=== PATIENT | female | born 1950 | race Caucasian/White ===

== ENCOUNTER → 2021-08-06 08:35 | Outpatient (BNVA) | payer MEDICARE, SELFPAY | PROVIDERS: Family Provider Family Medicine; Visit Provider Family Medicine | DX: R03.0 Elevated blood-pressure reading, without diagnosis of hypertension (principal); Z00.00 Encounter for general adult medical examination without abnormal findings; E78.5 Hyperlipidemia, unspecified | CPT/HCPCS: 80053; 80061 ==

== ENCOUNTER → 2022-08-01 09:30 | Outpatient (BNVA) | payer MEDICARE, SELFPAY | PROVIDERS: Family Provider Family Medicine; PCP Family Medicine; Visit Provider Family Medicine | DX: F41.9 Anxiety disorder, unspecified (principal); F32.9 Major depressive disorder, single episode, unspecified; E78.5 Hyperlipidemia, unspecified; G47.30 Sleep apnea, unspecified; R73.9 Hyperglycemia, unspecified | CPT/HCPCS: 80053; 80061; 83036; 84443 ==

== ENCOUNTER → 2022-10-24 08:22 | Outpatient (BNVA) | payer MEDICARE, SELFPAY | PROVIDERS: Family Provider Family Medicine; PCP Family Medicine; Visit Provider Nurse Practitioner Family | DX: L57.8 Other skin changes due to chronic exposure to nonionizing radiation (principal); L81.4 Other melanin hyperpigmentation; D22.5 Melanocytic nevi of trunk; L85.3 Xerosis cutis; L71.8 Other rosacea; L57.0 Actinic keratosis | CPT/HCPCS: 17000; 17003; 99214 ==

== ENCOUNTER → 2023-06-09 10:25 | Outpatient (BNVA) | payer MEDICARE, SELFPAY | PROVIDERS: Family Provider Family Medicine; PCP Family Medicine; Referring Provider Family Medicine; Visit Provider Surgery | DX: K59.09 Other constipation; R19.5 Other fecal abnormalities; K21.9 Gastro-esophageal reflux disease without esophagitis | CPT/HCPCS: 99204 ==

== ENCOUNTER 2023-06-11 13:04 | Outpatient (CLI) | payer MEDICARE, SELFPAY ==
--- NOTE | 2023-06-11 13:30 | XR_ITS ---
WS: [id number] SCREENING DEXA SCAN [employer] CLINICAL INFORMATION: osteoporosis screening COMPARISON: None. FINDINGS: The L1-L4 bone mineral density measures 1.231 g/cm2. This corresponds to a T score score of 0.4 and Z score of 2.1. Left femoral neck bone mineral density measures 0.841 g/cm2. This corresponds to a T score of -1.3 an d Z score of 0.2. Right femoral neck bone mineral density measures 0.855 g/cm2. This corresponds to a T score -1.2of an d Z score of 0.3. Mean femoral neck bone mineral density measures 0.848 g/cm2. This corresponds to a T score of -1.3 an d Z score of 0.3. IMPRESSION: Normal bone mineralization lumbar spine. Osteopenia femoral necks. Patient's FRAX calculated 10 year probability for major osteoporotic fracture is 21.9% and osteoporot ic hip fracture is 8.4%.
--- NOTE | 2023-06-11 14:00 | MM_ITS ---
WS: [id number] Bilateral screening 3D tomosynthesis digital mammogram, 06/11/2023 Clinical Data: breast cancer screening Comparison: None. Findings: The breast parenchymal pattern shows fibroglandular tissue. No spiculated masses or clustered calcifi cations are seen. There are no secondary signs of carcinoma. Impression: 1. Negative bilateral mammogram unchanged. 2. Recommend annual screening mammograms. MM/[place] [id number] BIRADS: 1-Negative FOLLOW UP: 1 Year Follow-up The CAD raspberry checker was used.
== END 2023-06-11 13:05 | disposition home or self-care (01) ==
LOC: RAD 13:04
PROVIDERS: Family Provider Family Medicine; PCP Family Medicine; Visit Provider Family Medicine
DX: Z12.31 Encounter for screening mammogram for malignant neoplasm of breast (principal); Z13.820 Encounter for screening for osteoporosis; M85.852 Other specified disorders of bone density and structure, left thigh; M85.851 Other specified disorders of bone density and structure, right thigh; Z78.0 Asymptomatic menopausal state
CPT/HCPCS: 77063; 77067; 77080

== ENCOUNTER 2023-07-23 09:51 | Day surgery (SDC) | payer MEDICARE, SELFPAY ==
[2023-07-23 10:15] VITALS: BP 149/79; PULSE 80; RESP 18; TEMP 36.2; O2SAT 98; BMI 28.5
--- NOTE | 2023-07-23 10:55 | ANES.PREANE2 ---
Pre-Anesthetic Assessment Height/Weight: Height 1.52 m Weight 66.224 kg Temp Pulse Resp BP Pulse Ox O2 Del Method 97.2 F L 80 18 149/79 98 Room Air 07/23/23 10:15 07/23/23 10:15 07/23/23 10:15 07/23/23 10:15 07/23/23 10:15 07/23/23 10:15 Preop Diagnosis: GERD, screening Operation Date: 07/23/23 11:00 Proposed Procedures p 28662 EGD, [address]55 Colon G0121 Z12.11,K21.9(Not Applicable) - Venu Doyle DO s Colonoscopy(Not Applicable) - Venu Doyle DO Familial anesthetic complications: none Was Beta Siobhan taken within 24 hours: N/A Was Clonidine taken within 24 hours: N/A Last intake: Intake Last Liquid Date 07/22/23 Last Liquid Time 21:00 Last Solid Date 07/21/23 Last Solid Time 18:00 Last Intake: 21:00 Social No alcohol and No tobacco Exam alert, oriented x 3, clear to auscultation bilaterally and regular rate & rhythm Airway Submandibular: within normal limits Cervical ROM: within normal limits Mallampati: Class II Dentition: false Pulmonary Sleep Apnea CV/HEM None reported None reported Hepatic None reported GI Gastroesophageal Reflux Disease Metabolic None reported Musc/skel None reported Neuropsych Anxiety and Depression Anesthetic Plan ASA status: 2 Anesthesia: MAC Risk of > 500 ml blood loss (7ml/kg in children): No Medications/Allergies Home Medications Medication Instructions Recorded Confirmed Last Taken Type metronidazole 1 % topical gel 1 applic topical DAILY #60 grams 04/18/22 07/21/23 07/17/23 Rx (Metrogel) tretinoin 0.05 % topical cream 1 applic topical .qhs #45 grams 04/18/22 07/21/23 1 Week Ago Rx ~07/14/23 duloxetine 60 mg capsule,delayed 60 mg PO DAILY #90 caps 02/04/23 07/21/23 07/22/23 Rx release alprazolam 0.5 mg tablet 0.5 mg PO TID PRN anxiety/stress 05/23/23 07/21/23 07/22/23 Rx #90 tabs alendronate 70 mg tablet (Fosamax) 70 mg PO .once a week #12 tabs 06/16/23 07/21/2307/19/24 Rx calcium 600 mg capsule 1,100 mg PO DAILY 07/21/23 07/21/23 07/22/23 History pantoprazole 40 mg tablet,delayed 40 mg PO DAILY 07/21/23 07/21/23 07/22/23 History release simvastatin 40 mg tablet 40 mg PO DAILY 07/21/23 07/21/23 07/22/23 History Allergies Allergy/AdvReac Type Severity Reaction Status Date / Time Sulfa (Sulfonamide Allergy hives, Verified 06/09/23 10:29 Antibiotics) rash, tongue swells up [facility] Anesthesia Medical History Macular degeneration Anxiety Hyperlipemia Depression Surgical History History of total hysterectomy with bilateral salpingo-oophorectomy (BSO) Family History Father Colon cancer Mother No problems noted. Social History Smoking and tobacco/nicotine status: never used tobacco/nicotine Alcohol intake: never Substance/Drug Use: never Household members: children Marital status: Marital status details: 30 years as of 2022 Number of children: 2 Number of grandchildren: 1 Current occupational status: retired Special batsheva needs: No Agree to transfusion: Yes Data Anesthesia Cardiac Studies: No Data to Display
[2023-07-23] MEDS: sodium chloride 0.9% 1,000 ML 30 ML IV (11:30)
--- NOTE | 2023-07-23 11:39 | PM.HP ---
Providers/Chief Complaint Primary Care Provider: Nazanin Call MD Chief Complaint: Z12.11 History of Present Illness Jeannette Mei is a 72 year old female Review of Systems General: Reports: 10 or more systems reviewed and unremarkable except in HPI and below Medications/Allergies Home Medications Medication Instructions Recorded Confirmed Last Taken Type metronidazole 1 % topical gel 1 applic topical DAILY #60 grams 04/18/22 07/21/23 07/17/23 Rx (Metrogel) tretinoin 0.05 % topical cream 1 applic topical .qhs #45 grams 04/18/22 07/21/23 1 Week Ago Rx ~07/14/23 duloxetine 60 mg capsule,delayed 60 mg PO DAILY #90 caps 02/04/23 07/21/23 07/22/23 Rx release alprazolam 0.5 mg tablet 0.5 mg PO TID PRN anxiety/stress 05/23/23 07/21/23 07/22/23 Rx #90 tabs alendronate 70 mg tablet (Fosamax) 70 mg PO .once a week #12 tabs 06/16/23 07/21/23 07/20/23 Rx calcium 600 mg capsule 1,100 mg PO DAILY 07/21/23 07/21/23 07/22/23 History pantoprazole 40 mg tablet,delayed 40 mg PO DAILY 07/21/23 07/21/23 07/22/23 History release simvastatin 40 mg tablet 40 mg PO DAILY 07/21/23 07/21/23 07/22/23 History Allergies Allergy/AdvReac Type Severity Reaction Status Date / Time Sulfa (Sulfonamide Allergy hives, Verified 06/09/23 10:29 Antibiotics) rash, tongue swells up PFSH Acute PFSH: Medical History Macular degeneration Anxiety Hyperlipemia Depression Surgical History History of total hysterectomy with bilateral salpingo-oophorectomy (BSO) Family History Father Colon cancer Mother No problems noted. Social History Smoking and tobacco/nicotine status: never used tobacco/nicotine Alcohol intake: never Substance/Drug Use: never Household members: children Marital status: Marital status details: 30 years as of 2022 Number of children: 2 Number of grandchildren: 1 Current occupational status: retired Special batsheva needs: No Agree to transfusion: Yes Vitals/I&O/Wt Last Vital Signs Temp 97.2 F L 07/23/23 10:15 Pulse 80 07/23/23 10:15 Resp 18 07/23/23 10:15 BP 149/79 07/23/23 10:15 Pulse Ox 98 07/23/23 10:15 O2 Del Method Room Air 07/23/23 10:15 Weight last 48 hrs Weight 146 lb A&P Assessment and plan (1) GERD (gastroesophageal reflux disease): (2) Colon cancer screening: Plan EGD and colonoscopy Attestations Medical Necessity Statement*: Home Coding Level of Care Code Acute Code for Chg Fwd Diagnoses GERD (gastroesophageal reflux disease) K21.9 Colon cancer screening Z12.11
[2023-07-23] MEDS: EPINEPHrine 1 mg/mL INJ XX (11:50)
[2023-07-23 12:10] VITALS: BP 147/88; PULSE 81; RESP 16; TEMP 34.4; O2SAT 94
[2023-07-23 12:25] VITALS: BP 135/83; PULSE 72; RESP 16; O2SAT 95
[2023-07-23 12:35] VITALS: BP 150/74; PULSE 62; RESP 18; O2SAT 100
--- NOTE | 2023-07-23 14:09 | ANE.PACU2 ---
Inpatient post-anesthesia follow up: Vital signs: Temperature 94 F Pulse Rate 62 Respiratory Rate 18 Blood Pressure 150/74 Pulse Oximetry 100 Oxygen Delivery Me thod Room Air Oxygen Flow Rate 4 Fraction of Inspir ed Oxygen Hydration adequate: Yes Nausea and vomiting: No Mental status: Baseline Additional Comments: no known anesthetic complications noted
== END 2023-07-23 12:55 | disposition home or self-care (01) ==
PROVIDERS: PCP Family Medicine; Visit Provider Surgery
PROC: 0DJ08ZZ Inspection of Upper Intestinal Tract, Via Natural or Artificial Opening Endoscopic (ICD-10-PCS; CPT 43235; principal; 2023-07-23 11:00)
PROC: 0DJD8ZZ Inspection of Lower Intestinal Tract, Via Natural or Artificial Opening Endoscopic (ICD-10-PCS; CPT 45378; 2023-07-23 11:00)
DX: Z12.11 Encounter for screening for malignant neoplasm of colon (principal); K44.9 Diaphragmatic hernia without obstruction or gangrene; K29.50 Unspecified chronic gastritis without bleeding; K21.00 Gastro-esophageal reflux disease with esophagitis, without bleeding; E78.5 Hyperlipidemia, unspecified; F41.9 Anxiety disorder, unspecified; F32.A Depression, unspecified; G47.30 Sleep apnea, unspecified
CPT/HCPCS: 43239; 45380; 88305; 88342; J0171; J2704; J7030

== ENCOUNTER → 2023-08-14 10:00 | Outpatient (BNVA) | payer MEDICARE, SELFPAY | PROVIDERS: PCP Family Medicine; Visit Provider Surgery | DX: Z09 Encounter for follow-up examination after completed treatment for conditions other than malignant neoplasm (principal); K59.04 Chronic idiopathic constipation; K21.00 Gastro-esophageal reflux disease with esophagitis, without bleeding | CPT/HCPCS: 99214 ==

== ENCOUNTER → 2023-09-05 08:52 | Outpatient (BNVA) | payer MEDICARE, SELFPAY | PROVIDERS: PCP Family Medicine; Visit Provider Surgery | DX: Z09 Encounter for follow-up examination after completed treatment for conditions other than malignant neoplasm (principal); K59.04 Chronic idiopathic constipation; K21.00 Gastro-esophageal reflux disease with esophagitis, without bleeding | CPT/HCPCS: 80053; 80061; 83036; 99214 ==

== ENCOUNTER → 2023-12-05 08:48 | Outpatient (BNVA) | payer MEDICARE, SELFPAY | PROVIDERS: PCP Family Medicine; Visit Provider Family Medicine | DX: E11.9 Type 2 diabetes mellitus without complications (principal) | CPT/HCPCS: 80053; 80061; 82607; 83036 ==

== ENCOUNTER 2023-12-26 09:37 | Outpatient (CLI) | payer MEDICARE, SELFPAY ==
--- NOTE | 2023-12-26 10:00 | CT_ITS ---
WS: [id number] CT ABDOMEN AND PELVIS WITH CONTRAST HISTORY: unintentional weight loss, abd pain TECHNIQUE: Imaging performed of the abdomen and pelvis with IV contrast. Single phase imaging of the abdomen. Coronal and sagittal reformats are submitted. All CT scans at [facility] use at [address] one of these dose optimization techniques: automated exposure control; mA and/or kV adjustment per patient size (includes targeted exams where dose is matched to clinical indication); or iterative re construction. IV CONTRAST: Omnipaque 350; 100 mL IV. Oral contrast: Yes. DLP: 264.45 mGy.cm COMPARISON: 01/21/2017 Lower thorax: Lung bases are clear. Heart is normal size. No hiatal hernia. Liver/biliary system: Normal size with no intrahepatic dilatation. Gallbladder: Normally distended gallbladder with numerous small stones in the dependent gallbladder. No adjacent inflammation. Pancreas: Normal size pancreas and pancreatic duct. No adjacent inflammation. Spleen: Normal size spleen. No mass or infarct. Adrenal glands: Normal. Right kidney: Normal. Left kidney: Normal. Aorta: Normal. Lymphadenopathy: None. Free fluid: None. GI tract: Stomach is markedly distended with oral contrast. No small bowel obstruction or enteritis. Marked overlapping loops of colon with diffuse moderate constipation. No obstructing process. Inspiss ated fecal material toward the rectum. There is a short segment narrowing in the distal sigmoid with mild wall thickening but this may be peristalsis. This can be further evaluated by colonoscopy if madi t has not been performed recently. Abdominal wall: Unremarkable abdominal wall. No hernia. Pelvis: No free fluid or adenopathy within the pelvis. Bones: Unremarkable. CT/CT abdomen pelvis w con* [id number] IMPRESSION: 1. Cholelithiasis without acute cholecystitis. Numerous tiny stones are presen t in the gallbladder. No hepatobiliary duct dilatation. 2. Possible short segment stricture or luminal narrowing involving the distal sigmoid colon. Consider further evaluation by colonoscopy. This may be an early neoplastic or inflammatory stricture or secondary to peristalsis. 3. Moderate diffuse constipation.
[2023-12-26] MEDS: iohexol 350 mg/mL 500 mL Btl (per mL) PO (11:21)
[2023-12-26] MEDS: iohexol 350 mg/mL 500 mL Btl (per mL) IV (11:21)
== END 2023-12-26 09:38 | disposition home or self-care (01) ==
LOC: RAD 09:40
PROVIDERS: PCP Family Medicine; Visit Provider Family Medicine
DX: K56.690 Other partial intestinal obstruction (principal); K80.20 Calculus of gallbladder without cholecystitis without obstruction; K59.00 Constipation, unspecified; R63.4 Abnormal weight loss; R10.9 Unspecified abdominal pain; K59.09 Other constipation
CPT/HCPCS: 74177

== ENCOUNTER → 2024-01-08 08:18 | Outpatient (BNVA) | payer MEDICARE, SELFPAY | PROVIDERS: PCP Family Medicine; Visit Provider Surgery | DX: K80.20 Calculus of gallbladder without cholecystitis without obstruction (principal); K59.04 Chronic idiopathic constipation | CPT/HCPCS: 99214 ==

== ENCOUNTER 2024-01-20 10:30 | Day surgery (SDC) | payer MEDICARE, SELFPAY ==
[2024-01-20] VITALS (21 sets, daily range): BP systolic 113–178; BP diastolic 51–93; PULSE 57–66; RESP 12–16; TEMP 36.1–36.6; O2SAT 87–100; BMI 23.8
--- NOTE | 2024-01-20 11:04 | W.PM.OPSUD ---
Surgery/Procedure H&P Update DATE OF PROCEDURE: January 20, 2024 DATE H&P PERFORMED: 01/08/24 H&P UPDATE INFORMATION: I have reviewed H&P completed within last 30 days, I have examined patient prior to procedure and No changes to prior documentation PLANNED PROCEDURE: Operation Date: 01/20/24 12:45 Proposed Procedures p Laparoscopic Cholecystectomy 03203, K80.20(Not Applicable) - Venu Doyle,
[2024-01-20 11:14] LABS: Glucose Point of Care 86 mg/dL (70-110)
[2024-01-20] MEDS: sodium chloride 0.9% 1,000 ML 30 ML IV (11:17)
--- NOTE | 2024-01-20 11:18 | ANES.PREANE2 ---
Pre-Anesthetic Assessment Height/Weight: Height 5 ft Weight 122 lb Temp Pulse Resp BP Pulse Ox O2 Del Method 97.6 F 61 16 152/87 98 Room Air 01/20/24 10:59 01/20/24 10:59 01/20/24 10:59 01/20/24 10:59 01/20/24 10:59 01/20/24 10:59 Preop Diagnosis: Cholecystitis Operation Date: 01/20/24 12:45 Proposed Procedures p Laparoscopic Cholecystectomy 29791, K80.20(Not Applicable) - Venu Doyle, DO Was Beta Siobhan taken within 24 hours: N/A Was Clonidine taken within 24 hours: N/A Last intake: Intake Last Liquid Date 01/19/24 Last Liquid Time 21:30 Last Solid Date 01/19/24 Last Solid Time 21:30 Social No alcohol and No tobacco Exam alert, oriented x 3, clear to auscultation bilaterally and regular rate & rhythm Airway Submandibular: within normal limits Cervical ROM: within normal limits Mallampati: Class II Dentition: other (Edentulous) Anesthetic Plan ASA status: 2 Anesthesia: General Other: No prior issues with anesthesia NPO since yesterday evening History of GERD, on Protonix Type 2 diabetes on metformin, AM BS 86 METs greater than 4 Plan for GETA Medications/Allergies Home Medications Medication Instructions Recorded Confirmed Last Taken Type alendronate 70 mg tablet (Fosamax) 70 mg PO .once a week #12 tabs 06/16/23 01/19/24 01/18/24 Rx calcium 600 mg capsule 1,100 mg PO DAILY 07/21/23 01/19/24 01/18/24 History simvastatin 40 mg tablet 40 mg PO DAILY #90 tabs 09/17/23 01/19/24 01/18/24 Rx polyethylene glycol 3350 17 17 g PO DAILY #238 grams 10/15/23 01/19/24 Unknown Rx gram/dose oral powder (Miralax) pantoprazole 40 mg tablet,delayed 40 mg PO DAILY #90 tabs 12/15/23 01/19/24 01/20/24 07:00 Rx release alprazolam 0.5 mg tablet See Rx Instructions PO DAILY PRN 12/23/23 01/19/24 01/20/24 07:00 Rx anxiety/stress #21 tabs linaclotide 72 mcg capsule 72 mcg PO DAILY 30 days #30 caps 01/08/24 01/19/24 01/19/24 Rx (Linzess) metformin 500 mg tablet,extended 1,000 mg PO BID 01/19/24 01/19/24 01/18/24 History release 24 hr duloxetine 60 mg capsule,delayed 60 mg PO DAILY 01/20/24 01/19/24 01/20/24 07:00 History release (Cymbalta) Allergies Allergy/AdvReac Type Severity Reaction Status Date / Time Sulfa (Sulfonamide Allergy hives, Verified 01/08/24 08:19 Antibiotics) rash, tongue swells up Current Medications Generic Name Dose Route Start Last Admin Trade Name Freq PRN Reason Stop Dose Admin Sodium Chloride 1,000 mls @ 30 mls/hr 01/20/24 10:45 01/20/24 11:17 Sodium Chloride 0.9% IV 01/21/24 10:44 30 mls/hr .Q24H JHONNY Administration PFSH Anesthesia Medical History Macular degeneration Anxiety Hyperlipemia Depression Surgical History History of total hysterectomy with bilateral salpingo-oophorectomy (BSO) Family History Father Colon cancer Mother No problems noted. Social History Smoking and tobacco/nicotine status: never used tobacco/nicotine Alcohol intake: never Substance/Drug Use: never Household members: children Marital status: Marital status details: 30 years as of 2022 Number of children: 2 Number of grandchildren: 1 Current occupational status: retired Special batsheva needs: No Agree to transfusion: Yes Data Anesthesia Cardiac Studies: No Data to Display
[2024-01-20] MEDS: ceFAZolin 2,000 mg SDV 2000 MG IVP (11:22)
[2024-01-20] MEDS: lidocaine-epi 2% PF 1:200,000 20 mL SDV INJECTION (11:43)
--- NOTE | 2024-01-20 12:15 | PM.OP ---
Operative Report Date of procedure: January 20, 2024 Surgeon: Venu Doyle DO Brief History: This is a very pleasant 73-year-old female who presented to my office with abdominal pain. She was diagnosed with symptomatic cholelithiasis. Laparoscopic cholecystectomy was indicated. The risks and benefits were explained and documented. Procedure: Preoperative diagnosis: Symptomatic cholelithiasis Postoperative diagnosis: Same Procedure performed: Laparoscopic cholecystectomy, Laparoscopic lysis of adhesions Surgeon: Dr. Venu Doyle DO Estimated blood loss: 5 mL Specimens: Gallbladder to pathology Complications: None apparent Description of procedure: Patient was wheeled into the operative room and placed on the OR table in a supine position. Abdomen was inspected prepped and draped in usual sterile fashion. Time-out was performed and all present were in agreement. A 15 blade scalp was used to make a 5 mm incision in the left upper quadrant and intra-abdominal insufflation was achieved using a Veress needle. A 5 mm trocar was then placed through this incision. Omentum and small bowel were found scarred to the anterior abdominal wall around the umbilicus. Omental adhesions were taken down bluntly and with electrocautery, taking care not to injure the small bowel. After localizing the tissue, incisions were made and a 5 millimeter trocar was placed supraumbilically as well as 2 in the right upper quadrant. A 12 millimeter trocar was placed in the epigastrium. There was significant omental adhesions to the gallbladder which were taken down with electrocautery. Gallbladder was grasped and elevated. The triangle of Calot was carefully dissected using blunt dissection and electrocautery until the triangle of Calot clearly identified. The cystic duct was clipped proximally and double clipped distally. The duct was then ligated proximally. The cystic artery was doubly clipped and ligated. The gallbladder was then removed from the liver bed using electrocautery. The gallbladder was removed from the abdomen using an Endo-Catch bag through the epigastric incision. The liver bed was inspected bleeding was controlled with electrocautery and a piece of Surgicel.. The abdomen was irrigated and suctioned. All ports removed. Skin was washed and dried. Incisions were closed with 4-0 Monocryl in a subcuticular interrupted fashion. Skin glue was applied. Patient tolerated the procedure well.
--- NOTE | 2024-01-20 13:52 | SUR.PHASEII ---
13:50 WARM BLANKETS APPLIED. PT ON O2 AT 3L/M. PLACED ON BEDPAN.
[2024-01-20 15:40] LABS: Glucose Point of Care 141 mg/dL (70-110)
== END 2024-01-20 15:45 | disposition home or self-care (01) ==
PROVIDERS: PCP Family Medicine; Visit Provider Surgery
PROC: 0FT44ZZ Resection of Gallbladder, Percutaneous Endoscopic Approach (ICD-10-PCS; CPT 47562; principal; 2024-01-20 12:45)
DX: K80.10 Calculus of gallbladder with chronic cholecystitis without obstruction (principal); K21.9 Gastro-esophageal reflux disease without esophagitis; E11.9 Type 2 diabetes mellitus without complications; Z79.84 Long term (current) use of oral hypoglycemic drugs; E78.5 Hyperlipidemia, unspecified; F32.A Depression, unspecified
CPT/HCPCS: 47562; 36416; 82962; 88304; J0360; J0690; J1100; J2310; J2405; J2704; J2710; J3010; J3490; J7030

== ENCOUNTER → 2024-02-02 08:53 | Outpatient (BNVA) | payer MEDICARE, SELFPAY | PROVIDERS: PCP Family Medicine; Visit Provider Surgery | DX: R03.0 Elevated blood-pressure reading, without diagnosis of hypertension (principal); Z90.49 Acquired absence of other specified parts of digestive tract; Z98.890 Other specified postprocedural states | CPT/HCPCS: 99024 ==

== ENCOUNTER → 2024-02-23 09:47 | Outpatient (BNVA) | payer MEDICARE, SELFPAY | PROVIDERS: PCP Family Medicine; Visit Provider Family Medicine | DX: E11.9 Type 2 diabetes mellitus without complications (principal) | CPT/HCPCS: 83036 ==

== ENCOUNTER 2024-03-19 12:52 | Emergency (ER) | payer MEDICARE, SELFPAY ==
--- NOTE | 2024-03-19 12:56 | XR_ITS ---
WS: [id number] Exam: XR KUB [id number] Date/Time of Exam: 03/19/2024 3:18 PM Reason For Exam: constipation No bowel obstruction or pneumoperitoneum. Prominent rectal fecal impaction. Moderate amount retained stool throughout the remaining colon. Degenerative changes of the lower lumbar spine. No sign of orga n enlargement. Signs of prior cholecystectomy. XR/XR KUB [id number] IMPRESSION: 1. Moderate rectal fecal impaction as well as constipation. 2. No acute process.
[2024-03-19 13:09] VITALS: BP 169/90; PULSE 76; RESP 18; TEMP 36.4; O2SAT 100; BMI 22.4
[2024-03-19 17:03] VITALS: BP 170/96; PULSE 90; RESP 12; O2SAT 99
--- NOTE | 2024-03-19 17:04 | ED_ITS ---
HPI - General Adult General: Chief complaint: General Medical Stated complaint: unable to BM, used supository Time Seen by Provider: 03/19/24 16:54 Source: patient Mode of arrival: ambulatory Limitations: no limitations History of Present Illness: 73-year-old female who states that she h as been constipated for the last few days she states she has taken MiraLAX and an enema with no improvement. She states she has had a history constipation the past but not this bad. She does have some cramping abdominal pain denies any severe pain she denies any fevers. Associated symptoms: Deny chest pain, dyspnea, headache(s), nausea, rash or vomiting Related Data Home Medications Medication Instructions Recorded Confirmed calcium 600 mg capsule 1,100 mg PO DAILY 07/21/23 03/17/24 Previous Rx's Medication Instructions Recorded alendronate 70 mg tablet (Fosamax) 70 mg PO .once a week #12 tabs 06/16/23 simvastatin 40 mg tablet 40 mg PO DAILY #90 tabs 09/17/23 pantoprazole 40 mg tablet,delayed 40 mg PO DAILY #90 tabs 03/10/24 release alprazolam 0.5 mg tablet 0.5 mg PO DAILY PRN anxiety/stress 03/17/24 #30 tabs amitriptyline 25 mg tablet 25 mg PO .qhs #30 tabs 03/17/24 Allergies Allergy/AdvReac Type Severity Reaction Status Date / Time Sulfa (Sulfonamide Allergy hives, Verified 03/19/24 13:15 Antibiotics) rash, tongue swells up Review of Systems Const: Denies: fever(s), chills, body aches or change in appetite ENMT: Denies: throat pain or dental pain Card: Denies: chest pain Resp: Denies: dyspnea GI: Reports: constipation; Denies: nausea, vomiting or diarrhea : Denies: dysuria Musc: Denies: neck pain or back pain Skin/Breast: Denies: rash Neuro: Denies: headache(s) PFSH ED PFSH: Medical History Macular degeneration Anxiety Hyperlipemia Depression Surgical History Hx laparoscopic cholecystectomy 01/20/24 Dr ling History of total hysterectomy with bilateral salpingo-oophorectomy (BSO) Family History Father Colon cancer Mother No problems noted. Social History Smoking and tobacco/nicotine status: never used tobacco/nicotine Alcohol intake: never Substance/Drug Use: never Household members: children Marital status: Marital status details: 30 years as of 2022 Number of children: 2 Number of grandchildren: 1 Current occupational status: retired Special batsheva needs: No Agree to transfusion: Yes Physical Exam Const: COMMON NORMALS: no acute distress, patient oriented x3 and healthy appearing HENMT: COMMON NORMALS: normocephalic and atraumatic HEAD & SCALP: normocephalic and atraumatic Eye: COMMON NORMALS: conjunctivae normal CONJUNCTIVA: Yes conjunctivae normal Neck/C-Spine: COMMON NORMALS: full ROM and supple Chest: COMMONS NORMALS: normal inspection of the chest Resp: COMMON NORMALS: normal respiratory effort Cardio: COMMON NORMALS: regular rate and No murmurs present (Cardio) RATE: regular rate GI: COMMON NORMALS: Normal to inspection, nondistended, normoactive bowel sounds present, Soft to palpation, non-tender and no masses PALPATION: Yes Soft to palpation Extremity: COMMON NORMALS: normal to inspection and full ROM Neuro: COMMON NORMALS: patient oriented x3, moves all extremities and no focal motor deficits Psych: COMMON NORMALS: mental status grossly normal, Normal thought process present and cooperative THOUGHT PROCESS: Normal thought process present Skin: COMMON NORMALS: no rashes or lesions noted and no wounds GENERAL SKIN EXAM: no rashes or lesions noted Course Vital Signs: Vital signs: Vital Signs Temperature 97.6 F 03/19/24 13:09 Pulse Rate 90 03/19/24 17:03 Respiratory Rate 12 03/19/24 17:03 Blood Pressure 170/96 03/19/24 17:03 Pulse Oximetry 99 03/19/24 17:03 Oxygen Delivery Me thod Room Air 03/19/24 17:03 MDM - General Adult Medical Decision Making Patient presents here with constipation I did manually disimpact her she is able have a bowel movement as well she stable for discharge continue MiraLAX at home return if worsening she understands agrees to plan Medical Records I reviewed the patient's medical records. Lab Data Radiology Impressions KUB X-Ray 03/19/24 12:56 IMPRESSION: 1. Moderate rectal fecal impaction as well as constipation. 2. No acute process. All radiology interpretation(s) finalized by discharge Discharge Plan Discharge Patient Disposition: Home Clinical Impression: Chronic constipation Condition: Stable Prescriptions: No Action alendronate [Fosamax] 70 mg tablet 70 mg PO .once a week Qty: 12 3RF amitriptyline 25 mg tablet 25 mg PO .qhs Qty: 30 0RF alprazolam 0.5 mg tablet 0.5 mg PO DAILY PRN (Reason: anxiety/stress) Qty: 30 0RF Hold Instructions: Resume on 01/21/24. 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
[2024-03-19] MEDS: lactulose oral liq 20 gm/30 mL UDC 30 GM PO (17:37)
[2024-03-19 17:59] VITALS: BP 145/97; PULSE 95; RESP 20; O2SAT 95
== END 2024-03-19 18:01 | disposition home or self-care (01) ==
PROVIDERS: Emergency Provider Emergency Medicine; PCP Family Medicine
DX: K59.09 Other constipation (principal); E78.5 Hyperlipidemia, unspecified
CPT/HCPCS: 74018; 99283

== ENCOUNTER → 2024-06-04 12:08 | Outpatient (BNVA) | payer MEDICARE, SELFPAY | PROVIDERS: PCP Family Medicine; Visit Provider Family Medicine | DX: E11.9 Type 2 diabetes mellitus without complications (principal) | CPT/HCPCS: 83036 ==

== ENCOUNTER → 2024-07-26 10:47 | Outpatient (BNVA) | payer MEDICARE, SELFPAY | PROVIDERS: PCP Family Medicine; Visit Provider Family Medicine | DX: Z00.00 Encounter for general adult medical examination without abnormal findings (principal); E11.9 Type 2 diabetes mellitus without complications; E78.5 Hyperlipidemia, unspecified; Z78.0 Asymptomatic menopausal state; Z91.89 Other specified personal risk factors, not elsewhere classified; R03.0 Elevated blood-pressure reading, without diagnosis of hypertension; F41.9 Anxiety disorder, unspecified; G47.00 Insomnia, unspecified; K59.09 Other constipation | CPT/HCPCS: 80053; 80061 ==

== ENCOUNTER 2024-08-02 08:58 | Outpatient (CLI) | payer MEDICARE, SELFPAY ==
--- NOTE | 2024-08-02 09:00 | MM_ITS ---
WS: [id number] BILATERAL SCREENING DIGITAL TOMOSYNTHESIS MAMMOGRAM WITH CAD HISTORY: breast cancer screening COMPARISON: 06/11/2023 Bilateral CC and MLO views with tomosynthesis and synthetic mammography submitted. Computer aided detection analyzed. Breast composition: There are scattered areas of fibroglandular density. No suspicious masses, microcalcifications or architectural distortion. Benign bilateral coarse calcifications. MM/MM scr BI tomosynthesis [id number] IMPRESSION: BI-RADS: 2 - Benign. FOLLOW UP: 1 Year Follow-up
== END 2024-08-02 08:59 | disposition home or self-care (01) ==
PROVIDERS: PCP Family Medicine; Visit Provider Family Medicine
DX: Z12.31 Encounter for screening mammogram for malignant neoplasm of breast (principal); R73.9 Hyperglycemia, unspecified; R92.323 Mammographic fibroglandular density, bilateral breasts; R92.1 Mammographic calcification found on diagnostic imaging of breast
CPT/HCPCS: 77063; 77067

== ENCOUNTER → 2024-08-23 10:01 | Outpatient (BNVA) | payer MEDICARE, SELFPAY | PROVIDERS: PCP Family Medicine; Visit Provider Family Medicine | DX: I10 Essential (primary) hypertension (principal) | CPT/HCPCS: 80048 ==